=== PATIENT | female | born 1965 | race Caucasian/White ===

== ENCOUNTER 2020-05-21 16:04 | Emergency (ER) | payer SELFPAY ==
[~2020-05-21] VITALS: Ht 160 cm; Wt 99.8 kg
[2020-05-21] MEDS ORDERED: TYLENOL325 M1 PO (17:20)
[2020-05-21] MEDS ORDERED: CLINDAMYCIN HC300 MG PO (17:20)
[2020-05-21] MEDS ORDERED: NAPROXEN250 MG PO (17:20)
[2020-05-21] MEDS ORDERED: PERIDEX118 ML MM (17:30)
== END 2020-05-21 17:33 | disposition home or self-care (01) ==
LOC: ED 16:04
DX: K04.7 Periapical abscess without sinus (principal)

== ENCOUNTER → 2020-06-12 | Outpatient (CLI) | payer SELFPAY ==
[~2020-06-12] MED LIST: CLINDAMYCIN HC300 MG PO; NAPROXEN250 MG PO; PERIDEX118 ML MM; TYLENOL325 M1 PO
== END | disposition home or self-care (01) ==
LOC: COVID19 15:13
PROVIDERS: ATTEND Internal Medicine
DX: Z20.828 Contact with and (suspected) exposure to other viral communicable diseases (principal)

== ENCOUNTER → 2021-05-01 | Outpatient (CLI) | payer OTHER | END | disposition home or self-care (01) | LOC: COVID19 16:52 | PROVIDERS: ATTEND Internal Medicine | DX: Z11.52 Encounter for screening for COVID-19 (principal) ==